=== PATIENT | female | born 1950 | race Caucasian/White ===

== ENCOUNTER 2018-01-23 20:10 | Inpatient (IN) | payer MEDICARE, BC ==
[~2018-01-23] VITALS: Ht 167.6 cm; Wt 54.4 kg
[2018-01-23 20:20] VITALS: BP 148/74
[2018-01-23] MEDS ORDERED: ACETAMINOPHEN 325MG TABLET PO PRN (21:15)
[2018-01-23] MEDS ORDERED: ONDANSETRON HCL 4MG TABLET PO PRN (21:15)
[2018-01-23] MEDS: DONEPEZIL HCL 10MG TABLET PO SCH (21:49)
[2018-01-23] MEDS: MIRTAZAPINE 15MG TABLET PO SCH (21:49)
[2018-01-23 21:55] VITALS: BP 148/74
[2018-01-24] MEDS ORDERED: MIRT15TA6 PO (00:33)
[2018-01-24] MEDS ORDERED: MEMA1CAP3 PO (00:33)
[2018-01-24] MEDS ORDERED: QUET25TA PO (00:33)
[2018-01-24 08:00] VITALS: BP 122/61
[2018-01-24 08:33] LABS: CHLORIDE 104 mEq/L (98-107)
[2018-01-24 08:38] LABS: BASOPHILS % 1.1 % (0.0-2.0); HEMATOCRIT. 36.4 % (36.0-48.0); HEMOGLOBIN. 12.5 g/dL (12.0-16.0); LYMPHOCYTES % 22.3 % (20.0-50.0); MEAN CORPUSCULAR HEMOGLOBIN 29.4 pg (28.0-32.0); MEAN CORPUSCULAR VOLUME 85.4 fL (81.0-99.0); MEAN PLATELET VOLUME 8.9 fl (7.4-10.4); MONOCYTES % 7.7 % (2.0-8.0); NEUTROPHILS % 65.9 % (40.0-76.0); PLATELET 359 x1000/uL (130-400); RED BLOOD CELL COUNT 4.26 mill/uL (4.2-5.4); RED CELL DISTRIBUTION WIDTH 13.2 % (11.6-14.6)
[2018-01-24 08:46] LABS: PREALBUMIN 19.2 mg/dL (20.0-40.0)
[2018-01-24] MEDS: DONEPEZIL HCL 10MG TABLET PO SCH (09:18)
[2018-01-24] MEDS: MEMANTINE HCL 10MG TABLET PO SCH ×2 (09:19→20:41)
[2018-01-24] MEDS: FAMOTIDINE 20MG TABLET PO SCH (09:19)
[2018-01-24 11:55] LABS: T4 FREE 1.14 ng/dL (0.76-1.46)
[2018-01-24 12:10] LABS: FOLIC ACID (FOLATE) SERUM 15.5 ng/mL (>5.38)
[2018-01-24] MEDS: ENOXAPARIN 40MG/0.4ML SYR SUBCUT SCH (14:00)
[2018-01-24 14:06] LABS: AMMONIA 22 uMol/L (<32)
[2018-01-24 20:00] VITALS: BP 139/84
[2018-01-24] MEDS: QUETIAPINE FUMARATE 25MG TABLET PO SCH (20:41)
[2018-01-24] MEDS: MIRTAZAPINE 15MG TABLET PO SCH (20:41)
[2018-01-24 22:57] LABS: CLARITY URINE CLOUDY (CLEAR); COLOR URINE YELLOW (YELLOW); KETONES URINE NEGATIVE (NEGATIVE); LEUKOCYTE ESTERASE URINE NEGATIVE (NEGATIVE); NITRITE URINE NEGATIVE (NEGATIVE); OCCULT BLOOD URINE 2+ (NEGATIVE); PROTEIN URINE TRACE (NEGATIVE)
[2018-01-25 08:00] VITALS: BP 137/60
[2018-01-25] MEDS: FAMOTIDINE 20MG TABLET PO SCH (08:39)
[2018-01-25] MEDS: QUETIAPINE FUMARATE 25MG TABLET PO SCH ×2 (08:39→20:50)
[2018-01-25] MEDS: DONEPEZIL HCL 10MG TABLET PO SCH (08:39)
[2018-01-25] MEDS: MEMANTINE HCL 10MG TABLET PO SCH ×2 (08:39→20:50)
[2018-01-25] MEDS: ENOXAPARIN 40MG/0.4ML SYR SUBCUT SCH (08:39)
[2018-01-25 11:55] LABS: PHOSPHORUS 3.4 mg/dL (2.5-4.9)
[2018-01-25 20:00] VITALS: BP 147/63
[2018-01-25] MEDS: MIRTAZAPINE 15MG TABLET PO SCH (20:50)
[2018-01-26 07:19] LABS: BASOPHILS % 1.2 % (0.0-2.0); EOSINOPHILS % 2.3 % (0.0-5.0); HEMATOCRIT. 35.8 % (36.0-48.0); MEAN CORPUSCULAR HEMOGLOBIN 28.3 pg (28.0-32.0); MEAN CORPUSCULAR VOLUME 84.7 fL (81.0-99.0); MEAN PLATELET VOLUME 8.6 fl (7.4-10.4); MONOCYTES % 7.7 % (2.0-8.0); NEUTROPHILS % 63.8 % (40.0-76.0); PLATELET 359 x1000/uL (130-400); RED BLOOD CELL COUNT 4.23 mill/uL (4.2-5.4); RED CELL DISTRIBUTION WIDTH 13.2 % (11.6-14.6)
[2018-01-26 07:53] LABS: CHLORIDE 103 mEq/L (98-107)
[2018-01-26 08:01] LABS: LDL CHOLESTEROL 114 mg/dL (5-100)
[2018-01-26 08:02] LABS: HDL CHOLESTEROL 45 mg/dL (40-59)
[2018-01-26 08:09] VITALS: BP 120/60
[2018-01-26] MEDS: QUETIAPINE FUMARATE 25MG TABLET PO SCH ×2 (08:21→21:02)
[2018-01-26] MEDS: ENOXAPARIN 40MG/0.4ML SYR SUBCUT SCH (08:21)
[2018-01-26] MEDS: DONEPEZIL HCL 10MG TABLET PO SCH (08:21)
[2018-01-26] MEDS: FAMOTIDINE 20MG TABLET PO SCH (08:21)
[2018-01-26] MEDS: MEMANTINE HCL 10MG TABLET PO SCH ×2 (08:22→21:01)
[2018-01-26] MEDS ORDERED: POTASSIUM CHLORIDE 20MEQ/PACKET PO NR (10:30)
[2018-01-26 20:00] VITALS: BP 147/81
[2018-01-26] MEDS: MIRTAZAPINE 15MG TABLET PO SCH (21:01)
[2018-01-27 07:00] VITALS: BP 121/58
[2018-01-27] MEDS: MEMANTINE HCL 10MG TABLET PO SCH ×2 (09:08→20:45)
[2018-01-27] MEDS: QUETIAPINE FUMARATE 25MG TABLET PO SCH ×2 (09:08→20:45)
[2018-01-27] MEDS: FAMOTIDINE 20MG TABLET PO SCH (09:08)
[2018-01-27] MEDS: DONEPEZIL HCL 10MG TABLET PO SCH (09:08)
[2018-01-27] MEDS: ENOXAPARIN 40MG/0.4ML SYR SUBCUT SCH (09:09)
[2018-01-27 20:00] VITALS: BP 128/78
[2018-01-27] MEDS: MIRTAZAPINE 15MG TABLET PO SCH (20:45)
[2018-01-28 06:59] LABS: BASOPHILS % 1.3 % (0.0-2.0); HEMATOCRIT. 36.9 % (36.0-48.0); HEMOGLOBIN. 12.4 g/dL (12.0-16.0); LYMPHOCYTES % 23.6 % (20.0-50.0); MEAN CORPUSCULAR HEMOGLOBIN 28.6 pg (28.0-32.0); MEAN CORPUSCULAR VOLUME 84.9 fL (81.0-99.0); MEAN PLATELET VOLUME 8.5 fl (7.4-10.4); MONOCYTES % 8.9 % (2.0-8.0); NEUTROPHILS % 63.2 % (40.0-76.0); PLATELET 348 x1000/uL (130-400); RED BLOOD CELL COUNT 4.34 mill/uL (4.2-5.4); RED CELL DISTRIBUTION WIDTH 13.1 % (11.6-14.6)
[2018-01-28 07:00] VITALS: BP 128/63
[2018-01-28 07:42] LABS: CHLORIDE 103 mEq/L (98-107)
[2018-01-28] MEDS: QUETIAPINE FUMARATE 25MG TABLET PO SCH ×2 (08:32→20:16)
[2018-01-28] MEDS: FAMOTIDINE 20MG TABLET PO SCH (08:32)
[2018-01-28] MEDS: MEMANTINE HCL 10MG TABLET PO SCH ×2 (08:32→20:16)
[2018-01-28] MEDS: ENOXAPARIN 40MG/0.4ML SYR SUBCUT SCH (08:33)
[2018-01-28] MEDS: DONEPEZIL HCL 10MG TABLET PO SCH (08:33)
[2018-01-28 20:00] VITALS: BP 145/85
[2018-01-28] MEDS: MIRTAZAPINE 15MG TABLET PO SCH (20:17)
[2018-01-29 06:51] LABS: CHLORIDE 103 mEq/L (98-107)
[2018-01-29 06:54] LABS: BASOPHILS % 1.3 % (0.0-2.0); EOSINOPHILS % 2.6 % (0.0-5.0); HEMATOCRIT. 36.9 % (36.0-48.0); HEMOGLOBIN. 12.4 g/dL (12.0-16.0); MEAN CORPUSCULAR HEMOGLOBIN 28.5 pg (28.0-32.0); MEAN CORPUSCULAR VOLUME 84.7 fL (81.0-99.0); MEAN PLATELET VOLUME 8.6 fl (7.4-10.4); MONOCYTES % 8.3 % (2.0-8.0); NEUTROPHILS % 64.8 % (40.0-76.0); PLATELET 350 x1000/uL (130-400); RED BLOOD CELL COUNT 4.35 mill/uL (4.2-5.4); RED CELL DISTRIBUTION WIDTH 13.3 % (11.6-14.6)
[2018-01-29 08:20] VITALS: BP 139/66
[2018-01-29] MEDS: ENOXAPARIN 40MG/0.4ML SYR SUBCUT SCH (09:02)
[2018-01-29] MEDS: QUETIAPINE FUMARATE 25MG TABLET PO SCH ×2 (09:03→20:34)
[2018-01-29] MEDS: MEMANTINE HCL 10MG TABLET PO SCH ×2 (09:03→20:34)
[2018-01-29] MEDS: FAMOTIDINE 20MG TABLET PO SCH (09:03)
[2018-01-29] MEDS: DONEPEZIL HCL 10MG TABLET PO SCH (09:03)
[2018-01-29] MEDS ORDERED: POTASSIUM CHLORIDE 20MEQ/PACKET PO SCH (10:30)
[2018-01-29 20:00] VITALS: BP 130/68
[2018-01-29] MEDS: MIRTAZAPINE 15MG TABLET PO SCH (20:43)
[2018-01-30 08:00] VITALS: BP 149/68
[2018-01-30] MEDS: DONEPEZIL HCL 10MG TABLET PO SCH (10:33)
[2018-01-30] MEDS: MEMANTINE HCL 10MG TABLET PO SCH ×2 (10:33→21:08)
[2018-01-30] MEDS: QUETIAPINE FUMARATE 25MG TABLET PO SCH ×2 (10:33→21:08)
[2018-01-30] MEDS: FAMOTIDINE 20MG TABLET PO SCH (10:33)
[2018-01-30] MEDS: ENOXAPARIN 40MG/0.4ML SYR SUBCUT SCH (10:34)
[2018-01-30 20:00] VITALS: BP 127/64
[2018-01-30] MEDS: MIRTAZAPINE 15MG TABLET PO SCH (21:08)
[2018-01-31 06:21] LABS: BASOPHILS % 1.1 % (0.0-2.0); HEMATOCRIT. 36.2 % (36.0-48.0); HEMOGLOBIN. 12.1 g/dL (12.0-16.0); LYMPHOCYTES % 25.2 % (20.0-50.0); MEAN CORPUSCULAR HEMOGLOBIN 28.3 pg (28.0-32.0); MEAN CORPUSCULAR VOLUME 84.7 fL (81.0-99.0); MEAN PLATELET VOLUME 8.8 fl (7.4-10.4); MONOCYTES % 7.4 % (2.0-8.0); NEUTROPHILS % 63.3 % (40.0-76.0); PLATELET 349 x1000/uL (130-400); RED BLOOD CELL COUNT 4.27 mill/uL (4.2-5.4); RED CELL DISTRIBUTION WIDTH 13.3 % (11.6-14.6)
[2018-01-31 06:47] LABS: CHLORIDE 104 mEq/L (98-107)
[2018-01-31 08:00] VITALS: BP 103/52
[2018-01-31] MEDS: MEMANTINE HCL 10MG TABLET PO SCH ×2 (09:24→20:49)
[2018-01-31] MEDS: QUETIAPINE FUMARATE 25MG TABLET PO SCH ×2 (09:24→20:49)
[2018-01-31] MEDS: DONEPEZIL HCL 10MG TABLET PO SCH (09:25)
[2018-01-31] MEDS: FAMOTIDINE 20MG TABLET PO SCH (09:25)
[2018-01-31] MEDS: ENOXAPARIN 40MG/0.4ML SYR SUBCUT SCH (09:26)
[2018-01-31 10:12] LABS: 25-HYDROXY VITAMIN D3 15 ng/mL (.)
[2018-01-31] MEDS ORDERED: ERGOCALCIFEROL 50000UNITS CAPSULE PO SCH (15:00)
[2018-01-31 20:00] VITALS: BP 123/60
[2018-01-31] MEDS ORDERED: LACTULOSE 20G/30ML UDC PO NR (20:00)
[2018-01-31] MEDS: MIRTAZAPINE 15MG TABLET PO SCH (20:49)
[2018-02-01 08:00] VITALS: BP 115/65
[2018-02-01] MEDS: MEMANTINE HCL 10MG TABLET PO SCH ×2 (08:58→21:19)
[2018-02-01] MEDS: DONEPEZIL HCL 10MG TABLET PO SCH (08:58)
[2018-02-01] MEDS: QUETIAPINE FUMARATE 25MG TABLET PO SCH ×2 (08:58→21:19)
[2018-02-01] MEDS: DOCUSATE SODIUM 100MG CAPSULE PO SCH ×2 (08:58→17:50)
[2018-02-01] MEDS: FAMOTIDINE 20MG TABLET PO SCH (08:59)
[2018-02-01] MEDS: ENOXAPARIN 40MG/0.4ML SYR SUBCUT SCH (08:59)
[2018-02-01] MEDS ORDERED: MAGNESIUM CITRATE 300ML SOLUTION PO NR (12:30)
[2018-02-01 20:00] VITALS: BP 136/57
[2018-02-01] MEDS: MIRTAZAPINE 15MG TABLET PO SCH (21:19)
[2018-02-02 08:09] VITALS: BP 129/69
[2018-02-02] MEDS: ENOXAPARIN 40MG/0.4ML SYR SUBCUT SCH (08:48)
[2018-02-02] MEDS: DONEPEZIL HCL 10MG TABLET PO SCH (08:49)
[2018-02-02] MEDS: QUETIAPINE FUMARATE 25MG TABLET PO SCH ×2 (08:49→21:23)
[2018-02-02] MEDS: DOCUSATE SODIUM 100MG CAPSULE PO SCH ×2 (08:49→17:01)
[2018-02-02] MEDS: FAMOTIDINE 20MG TABLET PO SCH (08:49)
[2018-02-02] MEDS: MEMANTINE HCL 10MG TABLET PO SCH ×2 (08:49→21:23)
[2018-02-02 20:00] VITALS: BP 116/62
[2018-02-02] MEDS: MIRTAZAPINE 15MG TABLET PO SCH (21:23)
[2018-02-03 08:00] VITALS: BP 121/66
[2018-02-03] MEDS: QUETIAPINE FUMARATE 25MG TABLET PO SCH (08:27)
[2018-02-03] MEDS: MEMANTINE HCL 10MG TABLET PO SCH (08:27)
[2018-02-03] MEDS: FAMOTIDINE 20MG TABLET PO SCH (08:27)
[2018-02-03] MEDS: DONEPEZIL HCL 10MG TABLET PO SCH (08:27)
[2018-02-03] MEDS: ENOXAPARIN 40MG/0.4ML SYR SUBCUT SCH (08:27)
[2018-02-03] MEDS: DOCUSATE SODIUM 100MG CAPSULE PO SCH (08:27)
[2018-02-03 11:50] VITALS: BP 121/66
== END 2018-02-03 13:40 | disposition home health service (06) | DRG 92 ==
PROVIDERS: ADMIT Physical Medicine & Rehabilitation Spinal Cord Injury Medicine; ATTEND Family Medicine Adult Medicine
DX: G92 Toxic encephalopathy (principal); N39.0 Urinary tract infection, site not specified; G30.9 Alzheimer's disease, unspecified; E44.1 Mild protein-calorie malnutrition; R47.01 Aphasia; F33.1 Major depressive disorder, recurrent, moderate; R13.10 Dysphagia, unspecified; F02.80 Dementia in other diseases classified elsewhere, unspecified severity, without behavioral disturbance, psychotic disturbance, mood disturbance, and anxiety; Z68.1 Body mass index [BMI] 19.9 or less, adult; R26.9 Unspecified abnormalities of gait and mobility; M79.609 Pain in unspecified limb; R20.0 Anesthesia of skin; E55.9 Vitamin D deficiency, unspecified
CPT/HCPCS: 36415; 80048; 80053; 80061; 81003; 82140; 82306; 82607; 82746; 83036; 83735; 84100; 84134; 84439; 84443; 84481; 84630; 85025; 87086; 92523; 92610; 93970; 97112; 97116; 97163; 97166; 97530; 97535; A6261; J1650